=== PATIENT | male | born 1955 | race African-American/Black ===

== ENCOUNTER 2017-11-24 08:45 | Outpatient (CLI) | payer OTHER, BC ==
[2017-11-24] MEDS ORDERED: Iopamidol 370 76% 100 ML VIAL ONE (14:26)
== END 2017-11-24 08:46 | disposition home or self-care (01) ==
LOC: BICCT 08:45
PROVIDERS: ATTEND Internal Medicine Cardiovascular Disease
DX: I71.2 Thoracic aortic aneurysm, without rupture (principal)
CPT/HCPCS: 71275

== ENCOUNTER 2018-06-13 08:42 | Outpatient (CLI) | payer OTHER, BC ==
[2018-06-13] MEDS ORDERED: Iopamidol 370 76% 100 ML VIAL ONE (10:12)
== END 2018-06-13 08:43 | disposition home or self-care (01) ==
LOC: BICCT 08:42
PROVIDERS: ATTEND Internal Medicine Cardiovascular Disease
DX: I71.2 Thoracic aortic aneurysm, without rupture (principal); E27.8 Other specified disorders of adrenal gland
CPT/HCPCS: 71260; 82565

== ENCOUNTER 2018-09-09 06:25 | Observation (INO) | payer MEDICARE, BC ==
[2018-09-09 07:26] LABS: #Basophils 0.1 thou/uL (0.0-0.2); #Eosinphils 0.1 thou/uL (0.0-0.7); #Lymphocytes 1.1 thou/uL (1.20-3.40); #Monocytes 0.6 thou/uL (0.11-0.59); %Eosinophils 2.8 % (0.0-10.0); %Monocytes 12.4 % (0.0-10.0); %Neutrophils 61.8 % (42.0-75.0); Hemoglobin 14.7 g/dL (14.0-18.0); Mean Corpuscular HGB CONC 31.9 g/dL (32.0-36.0); Mean Corpuscular Hemoglobin 26.9 pg (27.0-31.0); Mean Corpuscular Volume 84.4 fL (78.0-98.0); Mean Platelet Volume 7.2 fL (7.4-10.4); Platelet Count 239 thou/uL (130-400); RBC Distribution Width 12.6 % (11.5-14.5); Red Blood Cell (RBC) Count 5.45 mill/uL (4.70-6.10); White Blood Cell (WBC) Count 4.9 thou/uL (4.8-10.8)
[2018-09-09 07:44] LABS: Anion Gap 13 mmol/L (10-20); BUN (Urea Nitrogen) 13 mg/dL (8.4-25.7); Calc. Creatinine Clearance 0 mL/min (70-130); Carbon Dioxide 23 mmol/L (23-31); Chloride 105 mmol/L (98-107); Estimated GFR-MDRD 88; Potassium 3.9 mmol/L (3.5-5.1); Sodium 137 mmol/L (136-145)
[2018-09-09 07:45] LABS: ALT (SGPT) 17 U/L (8-55); AST (SGOT) 15 U/L (5-34); Albumin 4.1 g/dL (3.4-4.8); Alkaline Phosphatase 67 U/L (40-150); Bilirubin, Total 0.6 mg/dL (0.2-1.2); CK (CPK) 201 U/L (30-200); Calcium 9.6 mg/dL (7.8-10.44); Globulin 3.4 g/dL (2.4-3.5); Glucose 121 mg/dL (80-115); Lipase 17 U/L (8-78); Protein, Total 7.5 g/dL (5.8-8.1)
--- NOTE | 2018-09-09 08:03 | RAD ---
RADIOGRAPH CHEST 1 VIEW: HISTORY: 63-year-old male with chest pain. FINDINGS: The thoracic aorta is tortuous and ectatic. There is no evidence of air space density, pneumothorax, or pulmonary edema. The lateral costophrenic angles are sharp. There is no cardiomegaly. IMPRESSION: 1. No acute pulmonary findings. 2. Ectasia of thoracic aorta. alan [] POS: [facility]
[2018-09-09 09:32] VITALS: BMI 36.3
[2018-09-09] MEDS ORDERED: Acetaminophen 325 MG TAB PO PRN ×2 (09:47→11:05)
[2018-09-09] MEDS ORDERED: Ondansetron ODT 4 MG TAB PO PRN ×2 (09:48→11:05)
[2018-09-09] MEDS ORDERED: Ondansetron PF 4 MG/2 ML Vial IVP PRN ×2 (09:48→11:05)
[2018-09-09] MEDS ORDERED: Prevnar 13-Val Conj/PF 0.5 ML SYRINGE IM ONE (10:30)
[2018-09-09 10:53] LABS: Troponin I Less than 0.010 ng/mL (< 0.028)
--- NOTE | 2018-09-09 14:02 | NM ---
NUCLEAR MEDICINE CARDIAC PERFUSION EXAMINATION WITH EJECTION FRACTION: HISTORY: Chest pain, hypertension, and history of coronary catheterization x 2. TECHNIQUE: A stress-only nuclear medicine cardiac perfusion examination was performed. using 27 mCi of Techneti um 99m sestamibi given at the peak of exercise on a treadmill using a Shabbir protocol. FINDINGS: The nonattenuated corrected images perfusion defects with stress. Gated images show normal wall billy on with an ejection fraction of 46%. EDV is 124 mL. LHR is 0.5. IMPRESSION: No perfusion defect seen with stress. POS: [facility]
--- NOTE | 2018-09-09 14:16 | MRI ---
MRI OF THE BRAIN WITHOUT COTNRAST: COMPARISON: None. HISTORY: Left-sided chest pain radiating to the left jaw with dizziness. TECHNIQUE: Multiplanar, multisequence MR images were obtained of the brain without contrast. FINDINGS: There are a few subtle scattered foci of high FLAIR signal in the subcortical and periventricular whi te matter, likely secondary to small-vessel ischemic disease. No restricted diffusion is seen to sug gest an acute infarction. There is no evidence of hydrocephalus, intracranial hemorrhage, or extraax ial fluid collection. The expected flow voids are present. The corpus callosum, pituitary, and craniocervical junction are unremarkable. The calvarium and overlying soft tissues are unremarkable. The visualized paranasal sinuses and mast oid air cells are well aerated. IMPRESSION: 1. No evidence of acute intracranial abnormality. 2. Small-vessel ischemic disease. POS: [facility]
--- NOTE | 2018-09-09 14:18 | MRI ---
MRA OF THE BRAIN WITHOUT CONTRAST: COMPARISON: None. HISTORY: Left jaw pain and dizziness. TECHNIQUE: An MRI of the head was performed without contrast using 3D [id number] imaging. FINDINGS: The bilateral intracranial internal carotid arteries are normal in caliber. These branch into normal -appearing anterior and middle cerebral arteries. There is a prominent right posterior communicating artery. There is evidence of focal stenosis, occlusion, or aneurysmal dilatation in the anterior ci rculation. Both vertebral arteries form a normal-appearing basilar artery. The posterior cerebral arteries and cerebellar arteries are patent. There is no evidence of focal stenosis, occlusion, or aneurysmal dil atation in the posterior circulation. IMPRESSION: Unremarkable MRA of the head. POS: [facility]
[2018-09-09 15:19] LABS: Troponin I Less than 0.010 ng/mL (< 0.028)
[2018-09-09 15:44] VITALS: BP 111/74; TEMP 98.2
[2018-09-09] MEDS ORDERED: Mometasone/Formoterol 120 PUFF INHALER INH SCH (18:30)
[2018-09-09] MEDS ORDERED: Famotidine 20 MG TAB PO SCH (21:00)
--- NOTE | 2018-09-10 02:50 | HP ---
CODE STATUS: Full code. CHIEF COMPLAINT: Left-sided chest pain. HISTORY OF PRESENT ILLNESS AND REVIEW OF SYSTEMS: This is a 63-year-old man with a background history of hypertension and asthma, who presents complaining of left-sided chest pain that began approximately one week ago and has been intermittent since then. He has also been experiencing tingling in the left forearm and left side of his face. He woke up early hours this morning around 4:00 a.m. with recurrent pain in his in the center of his chest radiating to the left jaw and into his left shoulder. He once again felt tingling in his hand that has fully resolved. He denies any associated weakness in the left arm or anywhere else in his body. He describes a spinning sensation when he woke up with the pain and states it resolved within seconds. He did not experience any associated nausea or vomiting. No vision changes or speech disturbances. The pain in his chest and left shoulder has been mild and intermittent since. He describes a sharp shooting pain behind this left eye that remains intermittent. Denies any headaches. Has not had any recent falls or trauma. No neck or back pain. with regard to his appetite. Denies any bowel changes or urinary symptoms. All other review of systems are negative. Of note, he is under Dr. Carmona for what he describes as an arrhythmia. However, on documentation, it seems he has an enlarged heart. He is scheduled to see Dr. Carmona on . He is scheduled to see his primary care doctor tomorrow. PAST MEDICAL HISTORY: 1. Hypertension. 2. Asthma. PAST SURGICAL HISTORY: 1. Bladder suspension. 2. Benign breast tumor removed. 3. Surgery to the left knee with no residual problems. 4. Cardiac catheterization x2 without stents. SOCIAL HISTORY: He denies any alcohol use, drug use. Denies smoking. ALLERGIES: NO KNOWN DRUG ALLERGIES. MEDICATIONS: 1. K-Dur 40 mEq daily p.o. daily. 2. Advair Diskus 250/50 one puff inhaled daily. 3. Cholecalciferol 1000 units p.o. daily. 4. Azilsartan Med/Chlorthalidone one tablet p.o. daily. 5. Aspirin 325 mg p.o. daily. PHYSICAL EXAMINATION: VITAL SIGNS: Temperature 98.7, pulse 84, respirations 18, blood pressure 126/83, O2 saturation 95% on room air. GENERAL: The patient appears to be resting comfortably and is in no acute distress. HEENT: Normocephalic, atraumatic. Pupils are equal, round, and reactive to light. Sclerae are anicteric. Oropharynx is clear. NECK: Supple without lymphadenopathy. LUNGS: Clear to auscultation. CARDIAC: Regular rate and rhythm without audible murmurs, rubs, or gallops. No reproducible chest pain. ABDOMEN: Obese, soft, nontender, nondistended. Normoactive bowel sounds present. No renal angle tenderness. EXTREMITIES: No clubbing, cyanosis, or edema. No calf tenderness. MUSCULOSKELETAL: No spinal tenderness. Full range of motion in neck. Full range of motion in all extremities with strength as well as sensation intact. NEUROLOGIC: No focal deficits. No cerebellar signs. No ataxia. Normal facial sensation and facial movements. Power and sensation 5/5 in all limbs. Cranial nerves seem to be intact. LABORATORY DATA: White blood count 4.9, hemoglobin 14.7, hematocrit 46, platelets 239. Sodium 137, potassium 3.9, BUN 13, creatinine 1.03, eGFR 88, glucose 121, calcium 9.6, total bilirubin 0.6, ALT 17, alkaline phosphatase 67. . TnI negative x2. Third TnI pending. Protein 7.5, albumin 4.1. Lipase 17. IMAGING DATA: 1. Chest x-ray obtained, 12, 16, 18. No acute pulmonary findings. Ectasia of thoracic aorta noted. 2. ECG showed nonspecific ST changes. Junctional rhythm with 84 beats per minute and no ectopics. Minimal voltage criteria for LVH present. Possibly normal variant. ASSESSMENT AND PLAN: The patient will be admitted for further investigations. 1. Chest pain, rule out. He states he is under Dr. Carmona and recently underwent an echo as well as carotid ultrasound on August 29, 2018. We will obtain outside records and request a stress test. 2. Vertigo. Transient episode lasting seconds. Following further discussion with Dr. Cooley, he agrees we should assess further. We will order MRI/MRA to evaluate for possibility of cerebellar stroke. 3. Hypertension. Monitor blood pressure and continue medications. 4. Diet. N.p.o. until stress test is complete. Then, to resume heart healthy diet. 5. Gastrointestinal prophylaxis. 6. Deep vein thrombosis prophylaxis with mechanical sequential compression devices. Job ID: [id number]
[2018-09-10] MEDS ORDERED: Aspirin 325 MG TAB PO SCH (09:00)
--- NOTE | 2018-09-11 12:57 | EKG ---
Test Reason : Blood Pressure : / mmHG Vent. Rate : 084 BPM Atrial Rate : 053 BPM P-R Int : 000 ms QRS Dur : 078 ms QT Int : 392 ms P-R-T Axes : 000 -06 020 degrees QTc Int : 463 ms Accelerated Junctional rhythm Minimal voltage criteria for LVH, may be normal variant Nonspecific ST abnormality Abnormal ECG Confirmed by SHARI WEBBER ([id number]), editor farm journal GERHARD SANABRIA ([id number]) on 09/11/2018 12:56:38 PM Referred By: Confirmed By:SHARI WEBBER
== END 2018-09-09 17:59 | disposition home or self-care (01) ==
LOC: ERS 06:25 → 2SW 09:27 → INTOOBSV 09:27
PROVIDERS: ADMIT Internal Medicine Infectious Disease; ATTEND Internal Medicine Infectious Disease
DX: R07.89 Other chest pain (principal); I10 Essential (primary) hypertension; R42 Dizziness and giddiness; J45.909 Unspecified asthma, uncomplicated; Z79.82 Long term (current) use of aspirin; Z79.899 Other long term (current) drug therapy
CPT/HCPCS: 70544; 70551; 71045; 78452; 80053; 82550; 83690; 84484 ×2; 85025; 93005; 93017; 94760; 99285; A9500; 36415; 36416

== ENCOUNTER 2018-11-16 07:38 | Outpatient (CLI) | payer MEDICARE, BC ==
[2018-11-16 08:17] LABS: Estimated GFR-MDRD - POC Greater than 90
--- NOTE | 2018-11-16 09:33 | CT ---
CTA OF THE CHEST WITH CONTRAST: Date: 11/16/18 COMPARISON: 11/24/17. HISTORY: Aneurysm of the ascending aorta. TECHNIQUE: Multiple contiguous axial images were obtained in a CTA of the chest with contrast. 3D sagittal and c oronal MIP reformats were performed. FINDINGS: No focal infiltrates or masses are seen in the lungs. No pneumothorax or pleural effusions seen. The heart is normal in size without focal cardiac abnormality. No hilar or mediastinal lymphadenopath y are seen. There is ectasia of the ascending aorta. The aortic root measures 4.6 cm in greatest dimension. The a scending aorta distal to the sinuses of Valsalva measures 3.6 cm in greatest dimension. The descendin g aorta measures 3.2 cm in greatest dimension. There is no evidence of dissection at this time. Evalu ation is slightly limited secondary to motion artifact from the patient's heart. There is a stable left adrenal mass measuring approximately 2.0 cm in size. The other visualized subd iaphragmatic structures are unremarkable. Degenerative changes are seen in the spine. The chest wall soft tissues are unremarkable. IMPRESSION: 1. Stable ectasia of the ascending aorta. 2. Stable left adrenal adenoma. POS: C
[2018-11-16] MEDS ORDERED: ISOVUE-370 76%-LOCM 1 ML ONE (16:34)
== END 2018-11-16 07:39 | disposition home or self-care (01) ==
LOC: BICCT 07:38
PROVIDERS: ATTEND Internal Medicine Cardiovascular Disease
DX: I71.9 Aortic aneurysm of unspecified site, without rupture (principal); I77.810 Thoracic aortic ectasia; D35.02 Benign neoplasm of left adrenal gland
CPT/HCPCS: 71275; 82565; Q9966

== ENCOUNTER 2020-07-11 17:15 | Emergency (ER) | payer MEDICARE, BC ==
[2020-07-11 18:10] LABS: #Eosinphils 0.1 thou/uL (0.0-0.7); #Lymphocytes 0.7 thou/uL (1.20-3.40); #Monocytes 0.5 thou/uL (0.11-0.59); #Neutrophils 5.4 thou/uL (1.40-6.50); %Basophils 0.4 % (0.0-1.0); %Eosinophils 1.2 % (0.0-10.0); %Lymphocytes 10.6 % (21.0-51.0); %Monocytes 7.3 % (0.0-10.0); %Neutrophils 80.5 % (42.0-75.0); Hemoglobin 13.6 g/dL (14.0-18.0); Mean Corpuscular HGB CONC 33.5 g/dL (32.0-36.0); Mean Corpuscular Hemoglobin 27.9 pg (27.0-31.0); Mean Corpuscular Volume 83.3 fL (78.0-98.0); Platelet Count 284 thou/uL (130-400); RBC Distribution Width 12.8 % (11.5-14.5); Red Blood Cell (RBC) Count 4.89 mill/uL (4.70-6.10); White Blood Cell (WBC) Count 6.7 thou/uL (4.8-10.8)
[2020-07-11 18:30] LABS: ALT (SGPT) 18 U/L (8-55); AST (SGOT) 16 U/L (5-34); Alkaline Phosphatase 67 U/L (40-110); Anion Gap 11 mmol/L (10-20); BUN (Urea Nitrogen) 12 mg/dL (8.4-25.7); Bilirubin, Total 0.6 mg/dL (0.2-1.2); Calc. Creatinine Clearance 0 mL/min (70-130); Calcium 9.3 mg/dL (7.8-10.44); Carbon Dioxide 25 mmol/L (23-31); Chloride 103 mmol/L (98-107); Estimated GFR-MDRD Greater than 90; Globulin 3.4 g/dL (2.4-3.5); Glucose 117 mg/dL (80-115); Potassium 3.8 mmol/L (3.5-5.1); Protein, Total 7.4 g/dL (5.8-8.1); Sodium 135 mmol/L (136-145)
[2020-07-11 18:42] LABS: Bilirubin Negative (Negative); Blood, Urine Negative (Negative); Clarity Clear (Clear); Glucose, Urine (Dipstick) Normal (Negative); Ketone, Urine Negative (Negative); Leukocyte Negative Leu/uL (Negative); Nitrite Negative (Negative); Protein, Urine (Dipstick) Negative (Neg-Trace); Specific Gravity, Urine 1.008 (1.002-1.036); Urobilinogen Normal mg/dL (Less than 2); pH, Urine 6.5 (5.0-9.0)
--- NOTE | 2020-07-11 18:50 | CT ---
CT of abdomen and pelvis: 07/11/2020 COMPARISON: CT of abdomen and pelvis 02/22/2018 HISTORY: Flank pain on the right TECHNIQUE: Axial CT imaging at 5 mm intervals from lung bases through pubic symphysis without contras t. Coronal reformatted imaging obtained. FINDINGS: Lack of contrast media limits assessment of the viscera, bowel, vascular structures, and fo r lymphadenopathy. The imaged lung bases are unremarkable. No free intraperitoneal air or fluid noted. Hepatic and splenic granulomata are noted. There are a few scattered tiny hypodense lesions within the liver which are too small to characterize on this noncontrast enhanced examination. The gallbladder, the pancreas, and the right adrenal gland appear unremarkable. There is a low-density 2.4 cm lesion within the left adrenal gland with Ho unsfield units consistent with adrenal adenoma. There is a nonobstructing stone in the midpole of the right kidney measuring 4 mm. There is hypodensity in the parapelvic regions bilaterally, similar when compared to prior imaging, s uggesting parapelvic cyst formation. No discrete hydronephrosis or hydroureter is seen on either side. Scattered atherosclerotic calcification of the infrarenal abdominal aorta and the arterial structures of the pelvis noted. There is a calcification within the right hemipelvis along the course of the right ureter on axial im age 75 measuring 4 mm. This could represent a vascular structure or a stone within the distal right ureter. A vascular calcification is favored secondary to the lack of secondary signs of obstructive u ropathy There is stable enlargement of the prostate gland herniating into the bladder base. Limited evaluation of the bowel without contrast demonstrates diverticulosis of the descending colon and sigmoid colon. No evidence for diverticulitis, bowel inflammatory change, or bowel obstruction. The appendix is not discretely visualized on this examination. No right lower quadrant inflammatory c hange noted. Review of the osseous structures demonstrates multilevel degenerative change within the imaged spine with no worrisome lytic or blastic bone lesions appreciated. IMPRESSION: Lobulated enlarged prostate gland herniating into the bladder base. No definitive evidenc e for obstructive uropathy. Calcification along the course of the right ureter within the right hemipelvis as detailed above.
== END 2020-07-11 19:20 | disposition home or self-care (01) ==
LOC: ERS 17:15
DX: R10.9 Unspecified abdominal pain (principal); I10 Essential (primary) hypertension; Z79.82 Long term (current) use of aspirin; Z79.51 Long term (current) use of inhaled steroids
CPT/HCPCS: 36415; 74176; 80053; 81003; 85025; 93005

== ENCOUNTER 2020-11-18 09:51 | Outpatient (CLI) | payer MEDICARE, BC ==
[2020-11-18 10:23] LABS: Estimated GFR-MDRD - POC Greater than 90
--- NOTE | 2020-11-18 11:42 | CT ---
EXAM: CTA of the chest HISTORY: Thoracic aortic aneurysm COMPARISON: 11/16/2018, 11/24/2017 TECHNIQUE: Multiple contiguous axial images were obtained a CTA of the chest with contrast. Sagittal and coronal 3-D MIP reformats were performed. FINDINGS: HEART: Normal in size without focal cardiac abnormality. AORTA: The aorta measures 4.5 cm in greatest dimension along the sinuses of Valsalva. The ascending a benjy measures 4.2 cm in greatest dimension. The descending aorta measures 3.6 cm in greatest dimension. PULMONARY ARTERIES: Normal in caliber without filling defects to suggest pulmonary emboli. MEDIASTINUM: No hilar or mediastinal lymphadenopathy. LUNGS: No focal infiltrates or masses. PLEURAL SPACE: No pleural effusion or pneumothorax. CHEST WALL SOFT TISSUES: Unremarkable VISUALIZED OSSEOUS STRUCTURES: Degenerative changes in the spine. VISUALIZED SUBDIAPHRAGMATIC STRUCTURES: There is a stable 2.3 cm left adrenal mass consistent with an adrenal adenoma. There are stable hypodensities in the right lower liver. Calcified granulomas in the spleen. IMPRESSION: 1. Grossly stable ectasia of the thoracic aorta. The slight differences in measurement may be seconda ry to slight heart motion during the examination. 2. Stable left adrenal adenoma
[2020-11-18] MEDS ORDERED: Iopamidol-370 76% 500 ML 1 ML ONE (14:20)
== END 2020-11-18 09:52 | disposition home or self-care (01) ==
LOC: BICCT 09:51
PROVIDERS: ATTEND Internal Medicine Cardiovascular Disease
DX: I71.2 Thoracic aortic aneurysm, without rupture (principal); I77.810 Thoracic aortic ectasia; D35.02 Benign neoplasm of left adrenal gland
CPT/HCPCS: 71275; 82565; Q9967

== ENCOUNTER 2021-10-14 13:45 | Inpatient (IN) | payer MEDICARE, BC ==
[2021-11-03] MEDS ORDERED: Fentanyl 100 MCG/2 ML VIAL ONE ×4 (07:56→12:26)
[2021-11-03] MEDS ORDERED: Midazolam HCl 2 mg/2 ml Vial ONE (07:56)
[2021-11-03] MEDS ORDERED: Sodium Chloride 0.9% 100 ML ONE ×2 (08:01→08:23)
[2021-11-03] MEDS ORDERED: Tranexamic Acid 1,000 MG/10 ML VIAL ONE ×3 (08:01→08:26)
[2021-11-03] MEDS ORDERED: Vancomycin 1.5 GRAM/300 ML BAG 1.5 GM in Premix Bag 1 BAG IVPB SCH (08:15)
[2021-11-03] MEDS ORDERED: Bupivacaine 0.25% HCL 30 ML VIAL ONE (08:37)
[2021-11-03] MEDS ORDERED: EPINEPHrine 1 MG/ML AMP ONE (08:37)
[2021-11-03] MEDS ORDERED: Phenylephrine 10 MG/ML VIAL ONE (09:23)
[2021-11-03] MEDS ORDERED: ceFAZolin 2 GM/Dextrose 50 ML IVPB ONE (09:33)
[2021-11-03] MEDS ORDERED: Ondansetron PF 4 MG/2 ML Vial ONE (09:45)
[2021-11-03] MEDS ORDERED: Dexamethasone 20 MG/5 ML VIAL ONE (09:45)
[2021-11-03] MEDS ORDERED: Glycopyrrolate 0.2 MG/ML 5 ML SYRINGE ONE (09:45)
[2021-11-03] MEDS ORDERED: Rocuronium Bromide 10 MG/ML (10ML VIAL) ONE (09:45)
[2021-11-03] MEDS ORDERED: Bupivacaine HCl 0.5%/Epinephrine 1:200,000/PF 30 ml Vial ONE (09:45)
[2021-11-03] MEDS ORDERED: PROPOFOL 200 MG/20 ML VIAL ONE (09:45)
[2021-11-03] MEDS ORDERED: Ketorolac Tromethamine 30 MG/ML VIAL ONE (09:45)
[2021-11-03] MEDS ORDERED: Lidocaine 1% PF 5 ML VIAL ONE (09:45)
[2021-11-03] MEDS ORDERED: Fentanyl 100 MCG/2 ML VIAL SLOW IVP PRN (09:53)
[2021-11-03] MEDS ORDERED: Zolpidem Tartrate 5 MG TAB PO PRN ×2 (10:00→11:47)
[2021-11-03] MEDS ORDERED: HYDROcodone/Acetaminophen 10/325 mg Tablet PO PRN ×2 (10:00)
[2021-11-03] MEDS ORDERED: Ondansetron PF 4 MG/2 ML Vial IVP PRN ×2 (10:00→11:47)
[2021-11-03] MEDS ORDERED: Promethazine HCl 25 MG/ML VIAL IM PRN ×3 (10:00→11:47)
[2021-11-03] MEDS ORDERED: Ropivacaine 0.2% 550 ML 550 ML NERVE BLCK SCH (10:00)
[2021-11-03] MEDS ORDERED: traMADol HCl 50 MG TAB PO PRN ×2 (10:00)
[2021-11-03] MEDS ORDERED: Ondansetron HCl/PF 4 MG/2 ML Vial IVP PRN (11:22)
[2021-11-03] MEDS ORDERED: HYDROmorphone 2 MG/ML VIAL SLOW IVP PRN (11:22)
[2021-11-03] MEDS ORDERED: Promethazine HCl 25 MG/ML VIAL IVPB PRN (11:22)
[2021-11-03] MEDS ORDERED: PACU-Morphine 4MG/ML VIAL SLOW IVP PRN (11:22)
[2021-11-03] MEDS ORDERED: diphenhydrAMINE 25 MG CAP PO PRN (11:47)
[2021-11-03] MEDS ORDERED: Acetaminophen 325 MG TAB PO PRN (11:47)
[2021-11-03] MEDS ORDERED: Ketorolac Tromethamine 30 MG/ML VIAL IVP SCH (12:00)
[2021-11-03] MEDS ORDERED: Morphine 4 MG/ML VIAL ONE (13:02)
[2021-11-03] MEDS ORDERED: Ketorolac Tromethamine 30 MG/ML VIAL IM SCH ×2 (14:00→19:00)
[2021-11-03] MEDS ORDERED: Potassium Chloride 20 MEQ TAB PO PRN (15:35)
[2021-11-03] MEDS: Sodium Chloride 0.9% 1,000 ML IV SCH ×2 (17:08→22:40)
[2021-11-03 17:15] VITALS: BMI 36.8
[2021-11-03] MEDS: CEFAZOLIN 2 GM, Admixture Fee 1 EACH in Sodium Chloride 0.9% 100 ML IVPB SCH (17:55)
[2021-11-03] MEDS ORDERED: FLU VACC QS2021-22(65YR UP)/PF 240 MCG/0.7 ML SYRINGE IM ONE (18:00)
[2021-11-03] MEDS: Ketorolac Tromethamine 30 MG/ML VIAL IVP SCH ×2 (18:27→22:34)
[2021-11-03] MEDS: Ferrous Gluconate 324 MG TAB PO SCH (20:55)
[2021-11-03] MEDS: Aspirin 81 mg Enteric Coated Tablet PO SCH (20:55)
[2021-11-03] MEDS: Senokot S 8.6-50 MG TAB PO SCH (20:57)
[2021-11-03] MEDS ORDERED: VANCOMYCIN 2 GRAM/400 ML BAG 2 GM in Premix Bag 1 BAG IVPB SCH (22:00)
[2021-11-04] MEDS: CEFAZOLIN 2 GM, Admixture Fee 1 EACH in Sodium Chloride 0.9% 100 ML IVPB SCH (03:06)
[2021-11-04 05:17] LABS: Hemoglobin 14.9 g/dL (14.0-18.0); Mean Corpuscular Hemoglobin 27.4 pg (27.0-31.0); Mean Corpuscular Volume 85.8 fL (78.0-98.0); Mean Platelet Volume 7.3 fL (7.4-10.4); Platelet Count 158 thou/uL (130-400); RBC Distribution Width 14.2 % (11.5-14.5); Red Blood Cell (RBC) Count 5.43 mill/uL (4.70-6.10); White Blood Cell (WBC) Count 14.5 thou/uL (4.8-10.8)
[2021-11-04] MEDS: Ketorolac Tromethamine 30 MG/ML VIAL IVP SCH ×4 (05:23→23:01)
[2021-11-04] MEDS: Sodium Chloride 0.9% 1,000 ML IV SCH ×2 (05:41→17:55)
[2021-11-04] MEDS: Senokot S 8.6-50 MG TAB PO SCH ×2 (08:24→20:09)
[2021-11-04] MEDS: Aspirin 81 mg Enteric Coated Tablet PO SCH ×2 (08:24→20:09)
[2021-11-04] MEDS: Cholecalciferol 1,000 UNITS (25 MCG) TAB PO SCH (08:24)
[2021-11-04] MEDS: Ferrous Gluconate 324 MG TAB PO SCH ×2 (08:24→20:09)
[2021-11-04] MEDS: Multivitamin W/ Minerals 1 TAB PO SCH (08:24)
[2021-11-04] MEDS: Mometasone 200 MCG/Formoterol 5 MCG 120 PUFF INHALER INH SCH (08:26)
[2021-11-04] MEDS ORDERED: [UNRECOGNIZED DRUG - OTHER] PO SCH (09:00)
[2021-11-04] MEDS ORDERED: AZILSARTAN PO SCH (09:00)
[2021-11-05] MEDS: Ketorolac Tromethamine 30 MG/ML VIAL IVP SCH (05:09)
[2021-11-05] MEDS: Sodium Chloride 0.9% 1,000 ML IV SCH (05:09)
[2021-11-05 05:15] LABS: Hemoglobin 13.7 g/dL (14.0-18.0); Mean Corpuscular HGB CONC 31.3 g/dL (32.0-36.0); Mean Corpuscular Hemoglobin 27.2 pg (27.0-31.0); Mean Corpuscular Volume 86.8 fL (78.0-98.0); Mean Platelet Volume 7.5 fL (7.4-10.4); Platelet Count 188 thou/uL (130-400); RBC Distribution Width 14.1 % (11.5-14.5); Red Blood Cell (RBC) Count 5.02 mill/uL (4.70-6.10); White Blood Cell (WBC) Count 11.5 thou/uL (4.8-10.8)
[2021-11-05 05:41] VITALS: TEMP 99.2
[2021-11-05] MEDS: Mometasone 200 MCG/Formoterol 5 MCG 120 PUFF INHALER INH SCH (07:21)
[2021-11-05 08:18] VITALS: BP 135/72
[2021-11-05] MEDS: Aspirin 81 mg Enteric Coated Tablet PO SCH (08:48)
[2021-11-05] MEDS: Ferrous Gluconate 324 MG TAB PO SCH (08:48)
[2021-11-05] MEDS: Multivitamin W/ Minerals 1 TAB PO SCH (08:49)
[2021-11-05] MEDS: Cholecalciferol 1,000 UNITS (25 MCG) TAB PO SCH (08:49)
[2021-11-05] MEDS: Senokot S 8.6-50 MG TAB PO SCH (08:50)
== END 2021-11-05 12:00 | disposition home health service (06) | DRG 470 ==
LOC: SURG A 11-03 06:49 → SJJU 11-03 14:33
PROVIDERS: ADMIT Orthopaedic Surgery; ATTEND Orthopaedic Surgery
PROC: 0SRC0J9 Replacement of Right Knee Joint with Synthetic Substitute, Cemented, Open Approach (ICD-10-PCS; principal; 2021-11-03)
DX: M17.11 Unilateral primary osteoarthritis, right knee (principal); I10 Essential (primary) hypertension; J45.909 Unspecified asthma, uncomplicated; E78.5 Hyperlipidemia, unspecified; I25.10 Atherosclerotic heart disease of native coronary artery without angina pectoris; K21.9 Gastro-esophageal reflux disease without esophagitis; Z98.890 Other specified postprocedural states; Z86.73 Personal history of transient ischemic attack (TIA), and cerebral infarction without residual deficits; Z87.891 Personal history of nicotine dependence
CPT/HCPCS: 36415; 85027; A4306; C1713; C1776; J0171; J0690; J1100; J1885; J2250; J2270; J2370; J2405; J2704; J2795; J3010; J3370; J3490; S0020

== ENCOUNTER 2021-10-29 14:01 | Outpatient (CLI) | payer MEDICARE, BC ==
[2021-10-29 15:44] LABS: #Eosinphils 0.2 10x3/uL (0.0-0.5); #Monocytes 0.8 10x3/uL (0.0-1.1); #Neutrophils 4.6 10x3/uL (1.5-8.4); %Basophils 0.4 % (0.0-2.0); %Eosinophils 2.8 % (0.0-6.0); %Lymphocytes 21.9 % (18.0-47.0); %Monocytes 11.3 % (0.0-10.0); Hemoglobin 16.6 g/dL (13.5-17.5); Mean Corpuscular HGB CONC 32.4 g/dL (32.0-36.0); Mean Corpuscular Hemoglobin 26.1 pg (27.0-33.0); Mean Corpuscular Volume 80.7 fl (81.2-95.1); Mean Platelet Volume 9.4 fl (7.4-10.4); Platelet Count 240 10x3/uL (150-450); Red Blood Cell (RBC) Count 6.36 10x6/uL (4.32-5.72); White Blood Cell (WBC) Count 7.2 10x3/uL (3.5-10.5)
[2021-10-29 15:54] LABS: Prothrombin Time 10.7 sec (9.5-12.1)
[2021-10-29 16:00] LABS: Anion Gap 14 mmol/L (10-20); BUN (Urea Nitrogen) 14 mg/dL (8.4-25.7); Calc. Creatinine Clearance 0 mL/min (70-130); Calcium 9.1 mg/dL (7.8-10.44); Carbon Dioxide 23 mmol/L (23-31); Chloride 104 mmol/L (98-107); Glucose 91 mg/dL (80-115); Potassium 4.2 mmol/L (3.5-5.1); Sodium 137 mmol/L (136-145)
[2021-10-30 00:42] LABS: SARS-CoV-2 PCR by NAA Not Detected (NotDetected)
== END 2021-10-29 14:02 | disposition home or self-care (01) ==
LOC: LABBT 14:01
PROVIDERS: ATTEND Orthopaedic Surgery
DX: Z01.818 Encounter for other preprocedural examination (principal); M17.11 Unilateral primary osteoarthritis, right knee; Z20.822 Contact with and (suspected) exposure to COVID-19
CPT/HCPCS: 80048; 85025; 85610; 87081; 93005; U0003; U0005; 93010

== ENCOUNTER 2025-06-06 07:28 | Outpatient (CLI) | payer MEDICARE, BC ==
[2025-06-06 08:12] LABS: Estimated GFR - POC 59.0
[2025-06-06] MEDS ORDERED: Iopamidol 370 76% 100 ML VIAL ONE (11:18)
== END 2025-06-06 07:29 | disposition home or self-care (01) ==
LOC: CT 07:28
PROVIDERS: ATTEND Internal Medicine Cardiovascular Disease
DX: I77.810 Thoracic aortic ectasia (principal); K76.9 Liver disease, unspecified; N28.1 Cyst of kidney, acquired
CPT/HCPCS: 36415; 71275; 82565; Q9967